=== PATIENT | female | born 1970 | race Two or more races ===

== ENCOUNTER 2025-05-06 08:27 | Emergency (ER) | payer OTHER ==
[~2025-05-06] VITALS: Ht 160 cm; Wt 66.6 kg
[2025-05-06 09:45] VITALS: BP 138/99; PULSE 116; RESP 16; TEMP 98.7; O2SAT 96
--- NOTE | 2025-05-06 09:53 | ED.PDOC ---
SOB-HPI HPI Comments 55 yr F w/ a history of hypertension and hyperlipidemia presents for evaluation of cough, headache, right ear pain, chills, and subjective fever that started 2 days before this visit (on Monday evening). The symptoms initially allowed sleep with minimal cough, but worsened the night before this visit, resulting in poor sleep due to severe cough and discomfort. The chest pain is associated with frequent coughing, and the headache is described as a generalized pressure sensation. Denies vomiting or diarrhea. No shortness of breath, hemoptysis, or recent travel. No known sick contacts. The patient received a flu shot prior to this illness. Chief Complaint: Flu like Time Seen by MD: 08:59 Reviewed notes: Nurses Notes, Medications, Allergies Information Source: Patient Mode of Arrival: Ambulatory Past Medical History PAST MEDICAL HISTORY: Denies Surgical History: Denies all surgeries LASER ENGINEER History: No Pertinent LASER ENGINEER History Family History Family History: Reviewed,noncontributory to illness Social History Smoker: Non-Smoker Alcohol: Denies ETOH Use Drugs: Denies Drug Use All Other Systems: Reviewed and Negative (Per HPI) Physical Exam General Appearance: No Apparent Distress, Normal HEENT: Head (normocephalic ), Normal ENT Inspection, Pharynx Normal, TMs Normal Neck: Full Range of Motion, Non-Tender, Normal, Normal Inspection Respiratory: Chest Non-Tender, Lungs Clear, No Accessory Muscle Use, No Respiratory Distress, Normal Breath Sounds Cardiovascular: No Edema, No JVD, No Murmur, No Gallop, Normal Peripheral Pulses, Regular Rate/Rhythm Breast Exam: Deferred Gastrointestinal: No Organomegaly, Non Tender, No Pulsatile Mass, Normal Bowel Sounds, Soft Genitalia: Deferred Pelvic: Deferred Rectal: Deferred Extremities: No calf tenderness, Normal capillary refill, Normal inspection, Normal range of motion, Non-tender, No pedal edema Musculoskeletal : Apperance: Normal Neurologic: Alert, bi specialist II-XII nml as Tested, No Motor Deficits, Normal Affect, Normal Mood, No Sensory Deficits Cerebellar Function: Normal Reflexes: Normal Skin: Dry, Normal Color, Warm Lymphatic: No Adenopathy Was a procedure done? Was a procedure done?: No Differential Dx Differential Diagnosis: Asthma, Bronchitis, Pneumonia, Sinusitis, Allergic Rhinitis, Otitis Media, URI X-Ray, Labs, Meds, VS Vital Signs Date Time Temp Pulse Resp B/P (MAP) Pulse Ox O2 Delivery O2 Flow Rate FiO2 05/06/25 09:45 116 16 96 Room Air 05/06/25 09:45 98.7 116 16 138/99 (112) 96 98.7 05/06/25 08:29 98.7 122 16 156/97 96 98.7 Current Medications Medications (Trade) Dose Ordered Sig/Julianna Route Start Time Stop Time Status Last Admin Promethazine HCl/ Codeine (Phenergan W/ Codeine) 5 ml ONCE ONCE PO 05/06/25 10:00 05/06/25 10:01 DC 05/06/25 09:58 X-Ray, Labs, Meds, VS Comment The patient with a history of hypertension and hyperlipidemia presents with acute cough, headache, right ear pain, chest pain, chills, and subjective fever, beginning 2 days before this visit, with worsening symptoms. Objective findings include tachycardia and low-grade fever. Differential includes viral upper respiratory infection, bronchitis, or pneumonia; low suspicion for pulmonary embolism. Likely viral respiratory infection, but bacterial infection (including pneumoni a) must be ruled out due to chest pain and fever. PE is considered very unlikely given low risk factors and a zero Wells score. -Order chest X-ray to evaluate for pneumonia -Prescribe cough medicine and decongestants -Recommend acetaminophen or ibuprofen for headache -Monitor for worsening symptoms On reevaluation, patient had symptomatic improvement. Patient is stable for discharge at this time. External notes reviewed. Test results and diagnostic imaging interpreted. All diagnostic findings, discharge care, education and instructions provided Follow-up with PCP in 2 to 3 days Patient verbalized understanding and agreed to treatment plan Vital signs stable, afebrile, no acute distress noted Patient ambulatory with strong steady gait Advised to return precautions for any new or worsening symptoms, return to ER immediately for re-evaluation Patient is aware that the purpose of this visit was for an acute medical emergency requiring emergent stabilization. Chronic conditions, including malignancies have not been ruled out. Patient is instructed to follow up with PCP as directed and discharge instructions for continued care and workup. If unable to arrange follow-up, patient is to return to the emergency department for reassessment. Patient (parent or legal guardian if applicable) was given verbal and written discharge instructions and acknowledges understanding. Time of 1ST Reevaluation: 09:53 Reevaluation 1ST: Improved Patient Education/Counseling: Diagnosis, Treatment Family Education/Counseling: Diagnosis, Treatment SEPSIS Sepsis Screen Date sepsis recognized/suspect: May 06, 2025 Time Sepsis recognized/suspect: 0833 Recent Procedure: No On Antibiotic Therapy: No Respiratory Rate >20: No Heart Rate >90: Yes Temp<36 C (96.8 F) or >38.3 C: No SBP <90 or MAP <65 mmHG: No New Acute Mental Status Change: No Is the patient on CPAP, BIPAP,: No Physician Orders Chest Xray 1 View (05/06/25 09:46) Vital Signs Date Time Temp Pulse Resp B/P (MAP) Pulse Ox O2 Delivery O2 Flow Rate FiO2 05/06/25 09:45 116 16 96 Room Air 05/06/25 09:45 98.7 116 16 138/99 (112) 96 98.7 05/06/25 08:29 98.7 122 16 156/97 96 98.7 Medications Medications Dose Ordered Sig/Julianna Route Start Time Stop Time Status Last Admin Dose Admin Promethazine HCl/ Codeine 5 ml ONCE ONCE PO 05/06/25 10:00 05/06/25 10:01 DC 05/06/25 09:58 Departure 1 Departure Time of Disposition: 10:46 Impression: Primary Impression: Bronchitis Disposition: 01 HOME / SELF CARE / HOMELESS Condition: Fair e-Prescriptions Guaifenesin (Mucinex) 600 Mg Tab 1 TAB PO BID for 7 Days, #14 TAB 0 Refills Prov: BARAK GARCIA NP 05/06/25 Benzonatate (Benzonatate) 100 Mg Cap 1 CAP PO TID for 10 Days, #30 CAP 0 Refills Prov: BARAK GARCIA NP 05/06/25 Promethazine-Dm (Promethazine Dm 6.25-15 mg/5Ml) 1 Jacinta Jacinta 5 ML PO TID for 10 Days, #150 ML 0 Refills Prov: BARAK GARCIA NP 05/06/25 Critical Care Note Critical Care Time?: No Stability Stability form required: No Heart Score Heart Score: Heart Score Response (Comments) Value History N/A 0 EKG N/A 0 Age N/A 0 Risk Factors N/A 0 Troponin N/A 0 Total 0 BARAK GARCIA NP May 06, 2025 09:53
[2025-05-06] MEDS: PROMETHAZINE W/CODEINE 5 ML ORAL SYRUP PO ONE (09:58)
[2025-05-06] MEDS: FAMOTIDINE (10MG/ML) 2ML VL IV ONE (09:58)
--- NOTE | 2025-05-06 10:28 | DVH ---
CHEST RADIOGRAPH INDICATION: cough. r/o pna TECHNIQUE: Single frontal view of the chest was obtained COMPARISON: None FINDINGS: Lines and Tubes: None Lungs: Clear Pleura: No effusion. No pneumothorax. Cardiomediastinal contours: Unremarkable Bones: Unremarkable IMPRESSION: No acute disease.
[2025-05-06] MEDS ORDERED: BENZ100C97 PO (10:47)
[2025-05-06] MEDS ORDERED: GUAI600T78 PO (10:47)
[2025-05-06] MEDS ORDERED: PROM1SOL4 PO (10:47)
== END 2025-05-06 10:54 | disposition home or self-care (01) ==
LOC: ER 08:27
DX: J40 Bronchitis, not specified as acute or chronic (principal); I10 Essential (primary) hypertension; E78.5 Hyperlipidemia, unspecified; Z23 Encounter for immunization
CPT/HCPCS: 71045; J3490